=== PATIENT | female | born 2005 | race Two or more races ===

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

== ENCOUNTER 2023-12-09 21:44 | Emergency (ER) | payer OTHER ==
[2023-12-09] MEDS ORDERED: FAMOTIDINE 20 MG TABLET ONE (21:49)
[2023-12-09] MEDS ORDERED: DEXAMETHASONE 4 MG TABLET (FP) ONE (21:50)
[2023-12-09] MEDS: FAMOTIDINE 20 MG TABLET PO ONE (21:55)
[2023-12-09] MEDS: DEXAMETHASONE 4 MG TABLET (FP) PO ONE (21:55)
[2023-12-09 21:59] VITALS: BP 120/76; PULSE 90; RESP 18; TEMP 98.8; BMI 23.6
[2023-12-09] MEDS ORDERED: diphenhydrAMINE HCL 12.5 MG/5 ML PEDIATRIC LIQUID PO ONE (22:13)
[2023-12-09] MEDS: diphenhydrAMINE HCL 12.5 MG/5 ML UNIT-DOSE CUPS PO ONE (22:13)
== END 2023-12-09 22:33 | disposition home or self-care (01) ==
LOC: FER 21:44
DX: L50.0 Allergic urticaria (principal); T78.1XXA Other adverse food reactions, not elsewhere classified, initial encounter
CPT/HCPCS: 99283-25

== ENCOUNTER 2024-07-25 19:57 | Emergency (ER) | payer OTHER ==
[2024-07-25 20:07] VITALS: BP 132/87; PULSE 121; RESP 16; TEMP 99.1; BMI 22.8
[2024-07-25] MEDS ORDERED: ACETAMINOPHEN 650 MG/20.3 ML ORAL SOLUTION (CUPS) ONE (20:27)
[2024-07-25] MEDS ORDERED: ONDANSETRON *ODT* 4 MG TABLET ONE ×2 (20:28→22:07)
[2024-07-25] MEDS: ONDANSETRON *ODT* 4 MG TABLET SL ONE (20:55)
[2024-07-25] MEDS: ACETAMINOPHEN 650 MG/20.3 ML ORAL SOLUTION (CUPS) PO ONE (21:00)
[2024-07-25 21:43] LABS: HCG,QUALITATIVE URINE Negative
[2024-07-25] MEDS ORDERED: CIPROFLOXACIN 250 MG TABLET (RESTRICTED TO ID) PO ONE (22:07)
[2024-07-25] MEDS: CIPROFLOXACIN 500 MG TABLET (RESTRICTED TO ID) PO ONE (22:14)
== END 2024-07-25 22:17 | disposition home or self-care (01) ==
LOC: FER 19:57
DX: N39.0 Urinary tract infection, site not specified (principal); R50.9 Fever, unspecified; M79.10 Myalgia, unspecified site; R11.0 Nausea; R00.0 Tachycardia, unspecified; R63.8 Other symptoms and signs concerning food and fluid intake
CPT/HCPCS: 0241U-QW; 81003; 81015; 84703; 87086; 99283-25; Q0162

== ENCOUNTER 2024-07-26 15:54 | Emergency (ER) | payer OTHER ==
[2024-07-26 15:59] VITALS: BP 127/79; PULSE 76; RESP 18; TEMP 98.7; BMI 237.9
[2024-07-26] MEDS: SODIUM CHLORIDE 0.9% 500 ML INFUS.BAG IV ONE (16:15)
[2024-07-26 16:30] LABS: ABSOLUTE IMMATURE GRANULOCYTES 0.01 x10^3/uL (0.0-0.031); BASOPHILS # 0.01 x10^3/uL (0.01-0.08); EOSINOPHIL % 0.2 % (0.7-5.8); EOSINOPHILS # 0.01 x10^3/uL (0.04-0.36); HEMATOCRIT 42.4 % (34.1-44.9); HEMOGLOBIN 14.2 g/dL (11.2-15.7); MCHC 33.5 g/dl (32.2-35.5); MEAN CELL VOLUME 91.4 fl (79.4-94.8); MEAN PLT VOLUME 9.1 fl (9.4-12.3); MONOCYTE # 0.53 x10^3/uL (0.24-0.86); MONOCYTE % 13.1 % (4.7-12.5); PLATELET COUNT 267 x10^3/uL (182-369); RDW 11.8 % (12.1-16.5)
[2024-07-26 16:52] LABS: ALBUMIN 4.3 g/dl (3.4-5.0); BILIRUBIN,TOTAL 0.3 mg/dl (0.2-1); CALCIUM 9.1 mg/dl (8.5-10.1); CREATININE 0.9 mg/dl (0.6-1.3); POTASSIUM 3.7 mmol/L (3.5-5.1); TOT PROT 7.5 g/dl (6.4-8.2)
[2024-07-26 17:21] LABS: EPITHELIAL CELLS FEW /hpf
[2024-07-26 19:48] LABS: HCV DIAGNOSTIC IN-HOUSE W/RFLX NON-REACTIVE (NONREACTIVE)
[2024-07-26 19:49] LABS: HIV INTERPRETATION NEGATIVE (NEGATIVE)
== END 2024-07-26 17:48 | disposition home or self-care (01) ==
LOC: FER 15:54
DX: M79.10 Myalgia, unspecified site (principal); R11.0 Nausea; R51.9 Headache, unspecified; R50.9 Fever, unspecified; B34.9 Viral infection, unspecified
CPT/HCPCS: 36415; 80053; 81003; 81015; 83690; 84703; 85025; 86140; 86308; 86663; 86803; 87389; 87651; 99283-25